=== PATIENT | female | born 1955 | race Caucasian/White ===

== ENCOUNTER → 2017-10-10 | Outpatient (CLI) | payer OTHER ==
[~2017-10-10] MED LIST: BACL10 PO; CEPH500 PO; DIAZ5 PO; DOXY100 PO; HYDACE7.5 PO; OMEP20ER PO; OXYACE5T PO; PROM25 PO
== END ==
LOC: LAB SHORT 15:05 → LAB 15:05
DX: R10.2 Pelvic and perineal pain (principal)
CPT/HCPCS: 87086

== ENCOUNTER 2021-06-18 08:42 | Day surgery (SDC) | payer OTHER ==
[~2021-06-18] VITALS: Ht 180.3 cm; Wt 92.6 kg
[2021-06-18] MEDS ORDERED: CYCL10 PO (09:35)
[2021-06-18] MEDS ORDERED: ROSU10TA PO (09:35)
--- NOTE | 2021-06-18 10:20 | NUR ---
06/18/21 1020 Mukul Velasquez 0.15ML OF EPI 1MG/ML ADDED TO 30ML OF BUPIVICAINE 0.5% TO CREATE A SOLUTION OF BUPIVICAINE 0.5% WITH EPI 1:200,000.
== END 2021-06-18 12:30 | disposition home or self-care (01) ==
LOC: ORSCSDS 08:42
PROVIDERS: Podiatrist Foot & Ankle Surgery
PROC: 0SGM04Z Fusion of Right Metatarsal-Phalangeal Joint with Internal Fixation Device, Open Approach (ICD-10-PCS; principal; 2021-06-18 10:30)
DX: M20.21 Hallux rigidus, right foot (principal); Z87.891 Personal history of nicotine dependence; K21.9 Gastro-esophageal reflux disease without esophagitis; J44.9 Chronic obstructive pulmonary disease, unspecified; E78.5 Hyperlipidemia, unspecified; Z79.899 Other long term (current) drug therapy
CPT/HCPCS: A9270; C1713; J0171; J0690; J1100; J2250; J2405; J2704; J3010

== ENCOUNTER → 2024-10-03 | Outpatient (CLI) | payer OTHER ==
[~2024-10-03] MED LIST changes: +CYCL10 PO; +ROSU10TA PO
[2024-10-03 13:42] LABS: Source, Urine Clean Catch
[2024-10-03 16:17] LABS: Bilirubin, Urine Neg (Neg); Color, Urine Yellow (P-Yellow); Glucose Qualitative, Urine Neg (Neg); Ketones, Urine Neg (Neg); Leukocyte Esterase, Urine Neg (Neg); Protein, Urine Neg (Neg); Specific Gravity, Urine 1.010 (1.003-1.022); Urobilinogen, Urine NORM (Normal)
== END | disposition home or self-care (01) ==
LOC: LAB 13:38 → LAB SHORT 13:38
PROVIDERS: Student in an Organized Health Care Education/Training Program
DX: R30.0 Dysuria (principal)
CPT/HCPCS: 81003